=== PATIENT | female | born 1960 | race Caucasian/White ===

== ENCOUNTER 2016-11-19 12:58 | Emergency (ER) | payer BC ==
[2016-11-19 13:28] VITALS: BP 136/75
--- NOTE | 2016-11-19 13:54 | RAD ---
INDICATION: Left wrist pain COMPARISON: None TECHNIQUE: AP, lateral, and oblique views were obtained. FINDINGS: The bony structures, joint spaces, and soft tissues are normal for age. IMPRESSION: NEGATIVE EXAMINATION.
--- NOTE | 2016-11-19 14:30 | UC ---
Upper Extremity HPI - HPI Summary HPI Summary: 56 YEAR OLD FEMALE PRESENTS WITH COMPLAINS OF LEFT WRIST PAIN WITH NO TRAUMA. - History of Current Complaint Chief Complaint: UCUpperExtremity Stated Complaint: WRIST PAIN Time Seen by Provider: 11/19/16 14:28 Hx Obtained From: Patient Hx Last Menstrual Period: 1995 Onset/Duration: Sudden Onset Severity Initially: Moderate Severity Currently: Moderate Pain Scale Used: 0-10 Numeric - 5 - Allergies/Home Medications Allergies/Adverse Reactions: Allergies Allergy/AdvReac Type Severity Reaction Status Date / Time Ampicillin Allergy Severe Anaphylatic Verified 11/19/16 13:28 Shock Penicillins Allergy Severe Anaphylatic Verified 11/19/16 13:28 Shock PMH/Surg Hx/FS Hx/Imm Hx - Surgical History Surgical History: Yes Surgery Procedure, Year, and Place: TOTAL HYSTERECTOMY 2005 [facility] [place];. BREAST BIOPSIES (MULTIPLE);. BREAST RECONSTRUCTIVE SURGERY 1989 [facility] [place];. TONSILLECTOMY 1980;. [facility] 2007;. RIGHT SHOULDER REPAIR - DR. CASTILLO 2013; - Social History Alcohol Use: Rare Substance Use Type: None Smoking Status (MU): Never Smoked Tobacco - Immunization History Most Recent Influenza Vaccination: Fall 2012 Most Recent Tetanus Shot: within last five years Most Recent Pneumonia Vaccination: unsure Review of Systems Constitutional: Negative Skin: Negative Eyes: Negative ENT: Negative Respiratory: Negative Cardiovascular: Negative Gastrointestinal: Negative Genitourinary: Negative Motor: Negative Neurovascular: Negative Musculoskeletal: Other: - LEFT WRIST PAIN/SPRAIN Neurological: Negative Psychological: Negative All Other Systems Reviewed And Are Negative: Yes Physical Exam Triage Information Reviewed: Yes Vital Signs: Initial Vital Signs Temp 37.1 C 11/19/16 13:20 Pulse 95 11/19/16 13:20 Resp 15 11/19/16 13:20 BP 136/75 11/19/16 13:20 Pulse Ox 100 11/19/16 13:20 Vital Signs Reviewed: Yes Eye Exam: Normal ENT Exam: Normal Dental Exam: Normal Neck exam: Normal Neck: Positive: 1 Respiratory Exam: Normal Cardiovascular Exam: Normal Abdominal Exam: Normal Musculoskeletal: Positive: Other: - LEFT WRIST SPRAIN Neurological Exam: Normal Psychological Exam: Normal Skin Exam: Normal Upper Extremity Course/Dx - Differential Dx/Diagnosis Provider Diagnoses: LEFT WRIST SPRAIN Discharge - Discharge Plan Condition: Stable Disposition: HOME Prescriptions: Meloxicam [Mobic] 7.5 mg PO BID #30 tab Patient Education Materials: Hand Sprain (ED) Referrals: Nely Purvis MD [Primary Care Provider] - Raul Noyola MD [Medical Doctor] -
== END 2016-11-19 14:35 | disposition home or self-care (01) ==
LOC: UCEAST 12:58
DX: S63.502A Unspecified sprain of left wrist, initial encounter (principal); X58.XXXA Exposure to other specified factors, initial encounter; Y93.9 Activity, unspecified; Y92.9 Unspecified place or not applicable; Y99.9 Unspecified external cause status; Z88.1 Allergy status to other antibiotic agents; Z88.0 Allergy status to penicillin
CPT/HCPCS: 99213; G0463

== ENCOUNTER 2017-01-22 06:31 | Day surgery (SDC) | payer BC ==
[~2017-01-22 06:31] MED LIST: Buffered Lidocaine 0.9% SYRIN* 5 ML/SYR SYRINGE INTRADERM ONE; Famotidine TAB* 20 MG PO ONE; Naproxen TAB* 250 MG PO ONE; Scopolamine 1.5 mg* PATCH TRANSDERM ONE; Sodium Citrate/Citric Acid* 15 ML UDC PO ONE
[2017-01-22] MEDS ORDERED: Sodium Citrate/Citric Acid* 15 ML UDC ONE (06:42)
[2017-01-22] MEDS ORDERED: Famotidine TAB* 20 MG ONE (06:42)
[2017-01-22] MEDS ORDERED: Scopolamine 1.5 mg* PATCH ONE (06:42)
[2017-01-22] MEDS ORDERED: Clindamycin 900 MG IVPREMIX(* 900 MG/50 ML SDV IV ONE (06:43)
[2017-01-22] MEDS ORDERED: Bupivacaine 0.25% SDV* 30 ML ONE (07:12)
[2017-01-22] MEDS ORDERED: Ibuprofen TAB* 400 MG ONE (07:19)
[2017-01-22] MEDS ORDERED: Insulin LISPRO* 1 UNITS UNIT SUBCUT ONE ×2 (07:21→10:25)
[2017-01-22] MEDS ORDERED: Bupivacaine 0.5% W/EPI SDV* 30 ML VIAL ONE (07:34)
[2017-01-22] MEDS ORDERED: fentaNYL* 50 MCG/ML 2 ML VIAL (100 MCG VIAL) ONE ×2 (07:43→08:42)
[2017-01-22] MEDS ORDERED: Midazolam* 1 MG/ML 2 ML VIAL (2 MG) ONE (07:48)
[2017-01-22] MEDS ORDERED: Propofol* 10 MG/ML 20 ML BTL IV PUSH ONE (08:21)
[2017-01-22] MEDS ORDERED: Propofol* 500 MG/50 ML BTL ONE (08:41)
[2017-01-22] MEDS ORDERED: HYDROmorphone INJ* 1 MG/ML CARPUJECT SYRINGE IV PRN (09:11)
[2017-01-22] MEDS ORDERED: DiMENhydriNATE IV* 50 MG/ML VIAL IV PUSH PRN (09:11)
[2017-01-22] MEDS ORDERED: fentaNYL* 50 MCG/ML 2 ML VIAL (100 MCG VIAL) IV PRN (09:11)
[2017-01-22 11:36] VITALS: BP 125/71
--- NOTE | 2017-01-22 15:08 | OP ---
DATE OF OPERATION: 01/22/17 - [facility] DATE OF : 58 SURGEON: Raul Noyola MD VISUAL DESIGN LEAD: MARLI Olivarez. An administrative personal assistant was needed for the entirety of the procedure to aid in positioning of the arm and retraction, and passing instruments in and out of the joint. ANESTHESIOLOGIST: Dr. Montiel. ANESTHESIA: Axillary block with MAC. PRE-OP DIAGNOSIS: Left ulnar impaction syndrome. POST-OP DIAGNOSIS: Left ulnar impaction syndrome. OPERATIVE PROCEDURE: 1. Left wrist arthroscopy with TFCC debridement and partial synovectomy. 2. Left ulnar shortening osteotomy. INDICATIONS: Keily is 56. She has had ulnar-sided wrist pain that has been progressive for quite some time. She has MRI findings consistent with ulnar impaction syndrome. I talked to her about risks and benefits, she wanted to proceed. ESTIMATED BLOOD LOSS: 5 mL. COMPLICATIONS: None. FINDINGS: As expected. DESCRIPTION OF PROCEDURE: Keily was seen in the preoperative holding area. The correct side, site, and procedure were identified. We came back to the operating room and the arm was prepped and draped in the usual fashion. A time- out was performed. I began by placing the arm in the Acumed traction tower and appropriate traction was applied. Using finger traps, the arm was then exsanguinated with the Esmarch and the tourniquet inflated to 250 mmHg. I began by developing a 3/ 4 portal with the 11 blade followed by the mosquito and a blunt trocar. A camera was introduced into the portal. There was abundant synovitis and fraying inside the joint. I developed a 4/5 portal. A shaver was introduced there. I went ahead and debrided out the dorsal synovitis and there were some frayed edges to the cartilage on the ulnar side of the lunate. I then developed a 6R portal and the shaver was introduced there. Additional debridement was performed of the central TFCC perforation. At that point, I withdrew the arthroscopic equipment. Everything was trimmed back to nice smooth edges. I then went ahead and irrigated out and closed the portal sites with 3-0 Monocryl suture. I then passed off all the arthroscopic equipment. The hand was taken out of the traction tower. The elbow was flexed past 90 degrees. I went ahead and made a longitudinal incision over the distal aspect of the subcutaneous margin of the ulna. Dissection was carried down. The periosteum was released between the ECU and the FCU tendons. Subperiosteal dissection exposed the dorsal side of the ulna. Plate was positioned. At the site of the anticipated osteotomy, I circumferentially released the soft tissue about the ulna. The plate was clamped into place and the dorsal guide for the lag screw was pinned into place. I then went ahead and placed the cutting guide for my osteotomy. I selected a 4-mm cutting guide based off my preoperative planning. The initial osteotomy was made. The second cutting guide was brought in and the second osteotomy was made. I then applied the compression clamp and this was pinned into place and the osteotomy was compressed. Prior to making the cuts, I had placed one screw in the proximal aspect of the oblong hole and the three distal screws. Once the osteotomy was compressed, the lag screw was drilled and placed. I loosened the oblong screw and tightened the lag screw to get maximum compression across the osteotomy. The lag screw was then tightened again. The two more proximal holes were drilled and filled with appropriate length screws. Again, this was all the [employer] ulnar shortening osteotomy system. Once the osteotomy was completed, I checked fluoroscopy. There was excellent compression across the osteotomy site. The screw lengths were all appropriate. I did have to switch out the distal most screw from a 14 to 12 mm. Once I had everything looking good, we irrigated out the wound copiously. The fascia and periosteum was closed with 3-0 Vicryl suture. The subcutaneous tissue was reapproximated with 3-0 Vicryl suture. Skin was closed with 3-0 Monocryl running subcuticular suture and Steri-Strips. All the operative areas were infiltrated with 0.5% Marcaine. She had an axillary block performed prior to beginning the procedure. The wounds were dressed with 4x4, sterile Webril, and then a sugar tong splint was applied with the elbow in 80 degrees of flexion. Tourniquet was deflated. The hand pinked up immediately. She was woken up and taken to the recovery room in stable condition. [id number]/[facility] #: [id number] MTDD
[2017-01-25] MEDS ORDERED: Scopolamine PATCH Remove* 1 NOTE MISC PATCH OFF ONE (06:00)
--- NOTE | 2017-01-27 15:09 | RAD ---
INDICATION: Left wrist pain COMPARISONS: November 19, 2016 TECHNIQUE: Fluoroscopy was provided for a surgical procedure. Total fluoroscopy time is: 29 seconds FINDINGS: Spot images demonstrate internal fixation of the ulnar diaphysis IMPRESSION: FLUOROSCOPY WAS PROVIDED FOR A SURGICAL PROCEDURE CPT II Codes: 6045F
== END 2017-01-22 11:52 | disposition home or self-care (01) ==
LOC: OREAST 06:31
PROVIDERS: ATTEND Orthopaedic Surgery Hand Surgery
DX: M25.832 Other specified joint disorders, left wrist (principal); M65.832 Other synovitis and tenosynovitis, left forearm; M24.132 Other articular cartilage disorders, left wrist; I10 Essential (primary) hypertension; J45.909 Unspecified asthma, uncomplicated; E11.9 Type 2 diabetes mellitus without complications; F41.9 Anxiety disorder, unspecified; Z79.84 Long term (current) use of oral hypoglycemic drugs; Z88.0 Allergy status to penicillin; Z88.1 Allergy status to other antibiotic agents; M24.832 Other specific joint derangements of left wrist, not elsewhere classified
CPT/HCPCS: 76000; 88304; 88311; A9270-GY; C1713; C1776; J2250; J2704; J3010

== ENCOUNTER 2019-02-07 13:12 | Emergency (ER) | payer BC ==
--- OUTSIDE RECORDS SUMMARY | 2019-02-07 13:44 | XMS REPORT | Continuity of Care Document ---
:1960 External Reference #:[id number] Author Name Marysol Yap MD (transmitted by agent of provider Amanda Giang) Address [address] [place] [address] Care Team Providers Name Role Phone Nely Purvis MD - Care Team Information Chief Data Officer Family Medicine Problems Active Problems Provider Date Disorder of shoulder Marysol Yap MD Onset: 10/11/2015 Unspecified injury of left quadriceps muscle, Suzan Avila M.D. Onset: 07/11 fascia and tendon, subsequent encounter Other specific joint derangements of left wrist, Raul Noyola MD Onset: not elsewhere classified Sprain of wrist and/or hand Raul Noyola MD Onset: 02/23/2018 Iliotibial band friction syndrome Suzan Avila M.D. Onset: 04/16/2018 Localized, secondary osteoarthritis of the Marysol Yap MD Onset: 11/11/2018 shoulder region Incomplete rotator cuff tear or rupture of right Marysol Yap MD Onset: 06/2018 shoulder, not specified as traumatic Social History Type Date Description Comments Sex Unknown ETOH Use Rarely consumes alcohol Tobacco Use Start: Unknown Patient has never smoked Smoking Status Reviewed: 12/21/18 Patient has never smoked Exercise Type/Frequency Exercises sporadically Allergies, Adverse Reactions, Alerts Active Allergies Reaction Severity Comments Date Penicillin 02/15/2014 Ampicillin 11/25/2016 Medications Active Medications SIG Qnty Indications Ordering Provider Date Metformin HCL as directed Unknown 1000mg Tablets Crestor as directed Unknown 10mg Tablets Diovan HCT as directed Unknown Citalopram 1 by mouth every Unknown Hydrobromide day 20mg Tablets Trulicity inject 0.75mg once Unknown 0.75mg/0.5ML a week Solution Pen-Inject Medications Administered in Office Medication SIG Qnty Indications Ordering Provider Date Triamcinolone (Kenalog) Marysol Yap MD 11/02/2018 Injection Celestone 3 mg and 3mg Raul Noyola MD 12/15/2017 Injection Celestone 3 mg and 3mg Raul Noyola MD 12/19/2016 Injection Triamcinolone (Kenalog) Marysol Yap MD 10/11/2015 Injection Depomedrol 40MG Jonny Rose M.D. 04/03/2014 Injection Depomedrol 80MG Jonny Rose M.D. 02/15/2014 Injection Immunizations Description No Information Available Vital Signs Date Vital Result Comment 12/21/2018 3:28pm Height 61 inches 5'1" Weight 170.00 lb Heart Rate 88 /min BP Systolic 116 mmHg BP Diastolic 70 mmHg Body Temperature 99.3 F Pain Level 7 BMI (Body Mass Index) 32.1 kg/m2 11/11/2018 9:06am Height 61 inches 5'1" Weight 170.00 lb BP Systolic 128 mmHg BP Diastolic 88 mmHg Respiratory Rate 14 /min Body Temperature 98.0 F Pain Level 2 BMI (Body Mass Index) 32.1 kg/m2 Results Description No Information Available Procedures Date Code Description Status 11/02/2018 61526 Inject/Drain Joint/Bursa Major W/O US Completed Medical Devices Description No Information Available Encounters Type Date Location Provider Dx Diagnosis Office Visit 11/11/2018 [place] Alexy Yap MD M75.41 Impingement 9:00a at [place] syndrome of right shoulder 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, right shoulder M75.111 Incomplete rotatr-cuff tear/ruptr of r shoulder, not trauma Office Visit 11/02/2018 1:30p [facility] Y[facility] M25.511 Pain in right at [place] shoulder M75.41 Impingement syndrome of right shoulder M19.011 Primary osteoarthritis, right shoulder M75.51 Bursitis of right shoulder Assessments Date Code Description Provider 12/21/2018 M75.111 Incomplete rotator cuff tear or rupture of right Marysol Yap MD shoulder, not specified as traumatic 12/21/2018 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, right shoulder Marysol Yap MD 11/11/2018 M75.41 Impingement syndrome of right shoulder Marysol Yap MD 11/11/2018 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, right shoulder Marysol Yap MD 11/11/2018 M75.111 Incomplete rotator cuff tear or rupture of right Marysol Yap MD shoulder, not specified as traumatic 11/02/2018 M25.511 Pain in right shoulder Marysol Yap MD 11/02/2018 M75.41 Impingement syndrome of right shoulder Marysol Yap MD 11/02/2018 M19.011 Primary osteoarthritis, right shoulder Marysol Yap MD 11/02/2018 M75.51 Bursitis of right shoulder Marysol Yap MD Plan of Treatment 12/21/2018 - Marysol Yap MDM75.111 Incomplete rotator cuff tear or rupture of right shoulder, not specified as traumaticFollow up:Follow up: for rodríguez nd p or 10-14 days post op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, right shoulder Functional Status Description No Information Available Mental Status Description No Information Available Referrals Description No Information Available
--- OUTSIDE RECORDS SUMMARY | 2019-02-07 13:44 | XMS REPORT | Summary of Care ---
:1960 Author Organization [facility] Address [address] [place] [address] Care Team Providers Name Role Phone Nely Purvis MD Primary Care Provider Reason for Visit Reason Comments URI Pt presents today with a chest cold x 1 wk/10 days, Pt has taken Mucinex, and cough syrup w/ no relief. Counghing keeps the pt awake at night. Pt has had vomiting, diahrea for 2 days last week. Diabetes A1C 8.0 12/13/2018 Encounter Details Date Type Department Care Team Description 01/31/2019 Office Visit [place] [facility] Victor Hugo De La Rosa, Acute bronchitis , Medicine [place] unspecified organism [address] (Primary Dx) [place] [address] [place] [address] [phone] Allergies Active Allergy Reactions Severity Noted Date Comments Penicillin G Potassium Hives 04/26/2007 documented as of this encounter (statuses as of 01/31/2019) Medications Medication Sig Dispensed Refills Start Date End Date Status albuterol HFA Take 2 Puffs by 2 Inhaler 1 10/06/2014 Active (VENTOLIN) 108 (90 inhalation EVERY BASE) MCG/ACT SIX HOURS Inhalation Aero NEEDED (wheezing). SolnIndications: Asthma, mild persistent, uncomplicated metFORMIN HCL 1000 MG take 1 tablet by 60 Tab 11 02/17/2018 Active Oral TabIndications: mouth twice a day Type 2 diabetes for DIABETES mellitus without complication, without long-term current use of insulin ([facility]) Blood Glucose use as directed 1 Each 0 02/23/2018 Active Monitoring Suppl (FREESTYLE LITE) Does not apply Device Dulaglutide Inject 1.5 mg 2.24 mL 11 09/14/2018 Active (TRULICITY) 1.5 beneath the skin MG/0.5ML Subcutaneous EVERY 7 DAYS. Solution Pen-injectorIndication s: Type 2 diabetes mellitus without complication, without long-term current use of insulin ([facility]) citalopram (CELEXA) 20 take 1 tablet by 90 Tab 3 10/11/2018 Active MG Oral Tab mouth once daily FARXIGA 10 MG Oral take 1 tablet by 90 Tab 1 11/09/2018 Active TabIndications: Type 2 mouth once daily diabetes mellitus without complication, without long-term current use of insulin ([facility]) Valsartan-hydroCHLOROt Take 1 Tab by 90 Tab 3 12/17/2018 Active hiazide 80-12.5 MG mouth DAILY. Oral Tab Glucose Blood In Vitro 1 Strip by In 100 Strip 3 12/22/2018 Active StripIndications: Type Vitro route DAILY. 2 diabetes mellitus without complication, without long-term current use of insulin ([facility]) Rosuvastatin Calcium TAKE 1 TABLET BY 90 Tab 1 01/06/2019 Active (CRESTOR) 10 MG Oral MOUTH ONCE DAILY TabIndications: Hyperlipidemia, unspecified hyperlipidemia type guaiFENesin-codeine Take 10 mL by 118 mL 0 01/31/2019 Active (ROBITUSSIN AC) 100-10 mouth EVERY FOUR MG/5ML Oral Solution HOURS NEEDED (As needed for cough.). Max Daily Amount: 60 mL. documented as of this encounter (statuses as of 01/31/2019) Active Problems Problem Noted Date Asthma 10/06/2014 Essential hypertension, benign 05/26/2014 Type 2 diabetes mellitus without complication, without long-term current 08/12 use of insulin Overview: A1C 6.7% 12/24. documented as of this encounter (statuses as of 01/31/2019) Resolved Problems Problem Noted Date Resolved Date Persistent asthma 10/11/2013 10/06/2014 BMI 32.0-32.9,adult 09/01/2011 05/26/2014 Overview: sustained wt reduction with portion control and sustained routine exercise. Set realistic goal of 1# wt reduction /week set 10 week goals. BMI 34.0-34.9,adult 08/12/2010 09/01/2011 Overview: Is working on sustained wt reduction with diet/exercise (gym)--aiming for 1# wt loss/week. Mild intermittent asthma 02/29/2008 10/11/2013 Overview: Cold induced. Endometriosis 02/29/2008 05/26/2014 Overview: S/p ABDULLAHI and BSO Dr Og 02/22. Family history of breast cancer 02/29/2008 05/30/2011 Overview: Sister age 35 yrs S/P excision of fibroadenoma of breast 02/29/2008 05/30/2011 Overview: Bilateral. 1980, S/P reduction mammoplasty 02/29/2008 05/26/2014 Overview: Dr Varela . Asthma 01/20/2014 documented as of this encounter (statuses as of 01/31/2019) Immunizations Name Administration Dates Next Due Adacel TdaP 01/07/2006 Hepatitis B Vaccine Adult 02/17/1993 Influenza (IM) Preservative Free 12/17/2017 Influenza Vaccine Whole 11/12/1992, 11/18/1991, 12/27/1990 PNEUMOCOCCAL POLYSACCHARIDE VACCINE 01/01/1996 TDAP Vaccine 04/10/2017 TETANUS & DIPHTHERIA TOXOID (OVER 7 YRS) 12/17/2015 dT Vaccine 10/09/1995 documented as of this encounter Social History Tobacco Use Types Packs/Day Years Used Date Never Smoker Smokeless Tobacco: Never Used Alcohol Use Drinks/Week oz/Week Comments Yes 0 Standard drinks or equivalent 0.0 rare Sex Assigned at Date Recorded Not on file Job Start Date Occupation Industry Not on file Not on file Not on file Travel History Travel Start Travel End No recent travel history available. documented as of this encounter Last Filed Vital Signs Vital Sign Reading Time Taken Comments Blood Pressure 134/86 01/31/2019 3:23 PM EST Pulse 100 01/31/2019 3:23 PM EST Temperature 36.8 01/31/2019 3:23 PM EST C (98.2 F) Respiratory Rate - - Oxygen Saturation 96% 01/31/2019 3:23 PM EST Inhaled Oxygen Concentration - - Weight 77.1 kg (170 lb) 01/31/2019 3:23 PM EST Height 154.9 cm (5' 1") 01/31/2019 3:23 PM EST Body Mass Index 32.12 01/31/2019 3:23 PM EST documented in this encounter Patient Instructions Patient InstructionsVictor Hugo De La Rosa PA - 01/31/2019 3:20 PM ESTPatient Education Acute Bronchitis Discharge Instructions, Adult About this topic Acute bronchitis is a problem with your lungs. It can last for a short time or for a longer time. The lining of the airways to the lungs are irritated and swollen. It is a mild health problem that mostoften goes away on its own. What care is needed at home? Ask your doctor what you need to do when you go home. Make sure you ask questions if you do notunderstand what the doctor says. This way you will know what you need to do. Prop your head and shoulders on pillows when you lie down. This may make it easier to breathe. Use a cool mist humidifier to help with breathing. Be sure to clean it thoroughly with a mild bleach solution weekly. This will help prevent germs from growing in the water chamber. Drink 8 to 10 glasses of water each day. This will help keep the mucus thin. It will also help prevent fluid loss. Your doctor may teach you some breathing exercises. What follow-up care is needed? Your doctor may ask you to make visits to the office to check on your progress. Be sure to keepthese visits. It may take 1 to 2 weeks to feel better. Ask your doctor if you need a vaccine to prevent problems from bronchitis. What drugs may be needed? Take your drugs as ordered by your doctor. The doctor may order drugs to: Make breathing easier Control coughing Lower swelling in your airways Prevent infection Control extra mucus Will physical activity be limited? Your physical activities may be limited as long as you have the signs of this health problem. Avoid heavy and tiring activities. Talk to your doctor about the right amount of activity for you. What problems could happen? Long-term swelling of the lungs. This is chronic bronchitis. Asthma Lung infection Cough continues even after you feel better What can be done to prevent this health problem? Wash your hands often with soap and water for at least 20 seconds, especially after coughing orsneezing. Alcohol-based hand sanitizers also work to kill the virus. If you are sick, cover your mouth and nose with tissue when you cough or sneeze. You can also cough into your elbow. Throw away tissues in the trash and wash your hands after touching used tissues. Do not get too close (kissing, hugging) to people who are sick. Do not share towels or hankies with anyone who is sick. Clean commonly handled things like door handles, remotes, toys, and phones. Wipe them with a disinfectant. Stay away from crowded places. Stop smoking. Stay away from dust and fumes. Get a flu shot each year. When do I need to call the doctor? Signs of infection. These include a fever of 100.4F (38C) or higher , chills, cough, more sputum or change in color of sputum. Breathing is getting worse: harder or faster than before or you feel like you are getting less air You need to lean forward to help you breathe when sitting You are using your rib muscles to help you breathe. You see the skin between your ribs going inas you breathe. Trouble breathing when lying down flat on your back Feeling extra sleepy or confused Fingertips, fingernails, skin, or lips are blue You are not feeling better in 2 to 3 days or you are feeling worse Teach Back: Helping You Understand The Teach Back Method helps you understand the information we are giving you. The idea is simple. After talking with the staff, tell them in your own words what you were just told. This helps to make sure the staff has covered each thing clearly. It also helps to explain things that may have been a bit confusing. Before going home, make sure you are able to do these: I can tell you about my condition. I can tell you what may help ease my breathing. I can tell you what I will do if I have more trouble breathing, it is harder to breathe, or I feel like I am getting less air. Where can I learn more? [employer] https://familydoctor.org/condition/acute-bronchitis/ NHS Choices https://www.nhs.uk/conditions/bronchitis/ Last Reviewed Date 2017-04-03 Consumer Information Use and Disclaimer This information is not specific medical advice and does not replace information you receive from your health care provider. This is only a brief summary of general information. It does NOT include allinformation about conditions, illnesses, injuries, tests, procedures, treatments, therapies, discharge instructions or life-style choices that may apply to you. You must talk with your health care provider for complete information about your health and treatment options. This information should not beused to decide whether or not to accept your health care providers advice, instructions or recommendations. Only your health care provider has the knowledge and training to provide advice that isright for you. Copyright Copyright 2019 [employer] and its affiliates and/or licensors. All rights reserved. documented in this encounter Progress Notes Victor Hugo De La Rosa PA - 01/31/2019 3:20 PM EST PATIENT: Keily Maldonado : 1960 DATE OF SERVICE: 01/31/2019 Subjective SUBJECTIVE: Keily Maldonado is a 58-y.o. female who presents for evaluation of nonproductive cough. Symptoms began 2 weeks ago and are gradually improving since that time. Past history is significant for pneumonia and occasional episodes of bronchitis. 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 She has a history of pneumonia, and gets bronchitis annually that generally does not respond well to over the counter medications such as dextromethorphan and guaifenesin. She has been using these medications this week without any palliation. She also has associated sinus pain and pressure with post nasal drip, fever, nausea, vomiting, and diarrhea last week. Today she denies nausea, vomiting and diarrhea, but still complaints of facial tenderness and congestion, cough, and occasional wheezing. Past Medical History: Diagnosis Date Ovarian Cyst 04/28/2006 Arthritis chronic fatigue 1990, in remission Asthma hospitalized 2013 x 4 days DIABETES 08/12/2004 dx age 29 Essential hypertension, benign 05/26/2014 History of breast surgery 1989 reduction Hypertension 08/20/2004 Meningitis viral 11/1989 Pneumonia 02/1990 hospitalized for one week Family History Problem Relation Age of Onset Cancer Sister 41 BREAST Allergic Rhinitis Sister Breast Cancer Sister Hypertension Brother Cancer Mother LUNG Alcohol/Drug Mother Cancer Father STOMACHE No Known Problems Brother Cancer Paternal Grandmother breast cancer Breast Cancer Paternal Grandmother Cancer Maternal Grandmother brain cancer No Known Problems Brother No Known Problems Brother Diabetes Sister Asthma Sister Current Outpatient Medications Medication Sig albuterol HFA (VENTOLIN) 108 (90 BASE) MCG/ACT Inhalation Aero Soln Take 2 Puffs by inhalation EVERY SIX HOURS NEEDED (wheezing). Blood Glucose Monitoring Suppl (FREESTYLE LITE) Does not apply Device use as directed citalopram (CELEXA) 20 MG Oral Tab take 1 tablet by mouth once daily Dulaglutide (TRULICITY) 1.5 MG/0.5ML Subcutaneous Solution Pen-injector Inject 1.5 mg beneaththe skin EVERY 7 DAYS. FARXIGA 10 MG Oral Tab take 1 tablet by mouth once daily Glucose Blood In Vitro Strip 1 Strip by In Vitro route DAILY. guaiFENesin-codeine (ROBITUSSIN AC) 100-10 MG/5ML Oral Solution Take 10 mL by mouth EVERY FOUR HOURS NEEDED (As needed for cough.). Max Daily Amount : 60 mL. metFORMIN HCL 1000 MG Oral Tab take 1 tablet by mouth twice a day for DIABETES Rosuvastatin Calcium (CRESTOR) 10 MG Oral Tab TAKE 1 TABLET BY MOUTH ONCE DAILY Valsartan-hydroCHLOROthiazide 80-12.5 MG Oral Tab Take 1 Tab by mouth DAILY. No current facility-administered medications for this visit. Allergies Allergen Reactions Penicillin [Penicillin G Potassium] Hives Social History Socioeconomic History Marital status: Single Spouse name: Not on file Number of children: Not on file Years of education: Not on file Highest education level: Not on file Occupational History Not on file Social Needs Financial resource strain: Not on file Food insecurity Worry: Not on file Inability: Not on file Transportation needs Medical: Not on file Non-medical: Not on file Tobacco Use Smoking status: Never Smoker Smokeless tobacco: Never Used Substance and Sexual Activity Alcohol use: Yes Alcohol/week: 0.0 standard drinks Comment: rare Drug use: No Sexual activity: Never Lifestyle Physical activity Days per week: Not on file Minutes per session: Not on file Stress: Not on file Relationships Social connections Talks on phone: Not on file Gets together: Not on file Attends restorationist service: Not on file Active member of club or organization: Not on file Attends meetings of clubs or organizations: Not on file Relationship status: Not on file Intimate partner violence Fear of current or ex partner: Not on file Emotionally abused: Not on file Physically abused: Not on file Forced sexual activity: Not on file Other Topics Concern Back Care Not Asked Bike Helmet Not Asked Blood Transfusions Not Asked Caffeine Concern Not Asked Exercise Yes Comment: 1 hr three times a week Hobby Hazards Not Asked International Travel Not Asked Service Not Asked Occupational Exposure Not Asked Seat Belt Not Asked Self-Exams Not Asked Sleep Concern Not Asked Special Diet Yes Comment: low carbo and low salt diet. Stress Concern No Weight Concern Yes Comment: goal weight is 155 lbs. Social History Narrative Lives in [place]. 2 cats @ home. 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 Plans to retire REVIEW OF SYSTEMS: Review of Systems Constitutional: Positive for diaphoresis, fever and malaise/fatigue. HENT: Positive for congestion, ear pain and sinus pain. Negative for ear discharge. Eyes: Negative for pain and discharge. Respiratory: Positive for cough and wheezing. Negative for hemoptysis and sputum production. Complains of pleuritic chest pain. Cardiovascular: Negative for chest pain, palpitations and leg swelling. Gastrointestinal: Had nausea, vomiting, and diarrhea last week but has since resolved. Musculoskeletal: Negative for joint pain and myalgias. Experienced myalgias last week. Neurological: Negative for dizziness, loss of consciousness and headaches. Objective OBJECTIVE: BP 134/86 (BP Location: Right arm, Patient Position: Sitting) | Pulse 100 | Temp 98.2 F (36.8 C) (Tympanic) | Ht 5' 1" (1.549 m) | Wt 170 lb ( 77.1 kg) | SpO2 96% | BMI 32.12 kg/m GENERAL: alert, fatigued, mild distress. CYANOSIS: absent. HEENT: throat normal without erythema or exudate and maxillary sinus tender. Mild anterior cervicaladenopathy noted. LUNGS: clear to auscultation bilaterally. HEART: regular rate and rhythm, S1, S2 normal, no murmur, click, rub or gallop. ABDOMEN: soft, non-tender. Bowel sounds normal. No masses, no organomegaly. EXTREMITIES: extremities normal, atraumatic, no cyanosis or edema. NEUROLOGICAL: alert, oriented times three, no defects noted in general exam. ASSESSMENT: Acute bronchitis ICD-9-CM ICD-10-CM 1. Acute bronchitis, unspecified organism 466.0 J20.9 Plan PLAN: 1. Codeine with guaifenesin has been administered. I decided to do this medication based on her recurrent history of cough and bronchitis spells that do not respond well to Mucinex. She denies a history opioid dependence, and I also reviewed I-Stop and did not see any recent prescription for opiate. She has been advised of the risk of dependence with opiates, in which she expressed understanding to. This report was requested by: Victor Hugo De La Rosa | Reference #: [id number] 2. Recheck as needed for persistence, worsening, appearance of new symptoms. 3. Patient reassured that most of acute bronchitis is viral in nature and does not require antibiotics. Author: MARLI Brush 01/31/2019 15:55 documented in this encounter Plan of Treatment Date Type Specialty Care Team Description 02/21/2019 Office Visit Family Practice Nely Purvis MD [address] [place] [address] [phone] Health Maintenance Due Date Last Done Comments ZOSTER IMMUNIZATION SERIES 07/31/2009 (1 of 2) HEMOGLOBIN A1C 03/15/2019 12/13/2018, 08/04/2018, 05/05/2018, Additional history exists DEPRESSION SCREENING 05/14/2019 05/13/2018 FOOT EXAM 09/15/2019 09/14/2018, 09/14/2018, 09/14/2018, Additional history exists LIPID DISORDER SCREENING 01/07/2020 01/06/2019, 12/13/2018, 05/05/2018, Additional history exists Diabetic Eye Exam 04/05/2020 04/05/2018, 04/05/2018, 04/05/2018, Additional history exists Colonoscopy 05/28/2021 05/29/2011, 05/29/2011 (Previously completed) DTaP/Tdap/Td Vaccines (4 - 04/10/2027 04/10/2017, 12/17/2015, Tdap) 10/09/1995 PNEUMOCOCCAL 0-64 YRS Completed 01/01/1996 HEPATITIS A IMMUNIZATION Aged Out No longer eligible SERIES based on patient's age to complete this topic HPV IMMUNIZATION SERIES Aged Out No longer eligible based on patient's age to complete this topic MENINGOCOCCAL VACCINE IMM Aged Out No longer eligible based on patient's age to complete this topic documented as of this encounter Goals Goal Patient Goal Associated Recent Patient-Stated? Author Type Problems Progress Blood Pressure Blood Pressure Essential 134/86 No Cornelia, < 140/90 hypertension, (01/31/2019 Yovanny, colton 3:23 PM EST) Note: Hypertension Care Plan Based on the patient's clinical history and according to JNC 8 guidelines target blood pressure goal is less than 140/90. Based on the patient's last blood pressure of BP: 122/80 mmHg the patient is at at goal. As your provider, it is important that I advise you regarding: your current medications and help you with any challenges you may face taking your medications as directed (ex. instructions, cost, side effects, and interactions). Important lifestyle changes: exercise, weight reduction and diet your clinical goals and how you can achieve success: weight reduction, exercise plan and diet improvements medication management: adjusted medications as appropriate patient education/self-management tools provided: Current self-management tools adequate To successfully manage my Hypertension I will: monitor my blood pressure daily, understanding that my goal is less than 140/ 90 per my healthcare provider's recommendation. I will schedule an appointment with my provider if consistent abnormal readings greater than 160/100. take medications every day as prescribed by my healthcare provider and if unable to take them I will discuss with my provider. monitor for symptoms of chest pain, chest tightness/pressure, irregular heartbeat, persistent dizziness, radiating arm pain, and neck or jaw pain. If any of these symptoms are noticed I will seek medical attention immediately by calling 911 exercise/walk 15 minutes 3 day(s) per week. If I experience chest pain, chest tightness, or shortness of breath, I will seek medical attention immediately. follow a diet rich in fruits, vegetables, and low-fat dairy products with reduced content of saturated & total fat. I will reduce my sodium intake daily. An example is the DASH diet. To obtain more information please refer to the DASH Eating Plan listed in Educational Resources. record my blood pressure results. Margie is safe and secure way for you to do this in your medical record online. try to obtain an ideal body weight. My recent weight was Weight: 182 lb ( 82.555 kg). My weight loss goal for my next office visit is 175#. limit alcohol consumption. For men two drinks per day and women one drink per day. if currently smoking, will discuss how to quit smoking with my healthcare provider and work towards quitting. Educational Resources: National Heart, Lung, & Blood [place] http://nhlbi.nih.gov/hbp/index.html The DASH Diet Eating Plan http://www.nhlbi.nih.gov/health/health-topics/ topics/dash/ Academy of Nutrition & DIetetics http://eatright.org National Smoking Cessation Site http://smokefree.gov Blood Pressure < Blood Pressure 134/86 (01/31/2019 No Nely Purvis 140/90 3:23 PM ESTSonido Baker MD Note: This is an individualized treatment (blood pressure) goal for Keily Maldonado: Displayed above (on the left) is your goal for blood pressure control. Your most recent blood pressure is also shown above, on the right. You should try to achieve blood pressures that are lower than your goal listed above (on the left). Diabetes < 7.0 Diabetes Type 2 diabetes 8.0 (12/13/2018 No Cornelia mellitus without 9:13 AM EDT) MD Yovanny complication, without long-term current use of insulin Note: Diabetes Care Plan According to current 2014 ADA guidelines the patient A1C goal is less than 7. The patient's last A1C was Lab Results Lab Results Value Date/Time GLYCO 7.6 12/02/2013 0827 GLYCO 7.5 11/30/2012 1155 The patient is:above goal . As your provider, it is important that I advise you regarding: your current medications and help you with any challenges you may face taking your medications as directed (ex. instructions, cost, side effects, and interactions). lifestyle changes:exercise, diet and glucose monitoring your clinical goals and how you can achieve success:weight reduction, exercise plan and diet management medication management: adjusted medications as appropriate patient education/self-management tools provided: To successfully manage my Diabetes I will: have lab work every six months if my previous A1c was 7 or less. If my results were greater than 7, I will have lab work every three months. My goal is to control my diabetes by keeping A1c below 7.0 take medications every day as prescribed by my healthcare provider and if unable to take them I will discuss with my provider. exercise/walk 30 minutes 3 day(s) per week. If I experience chest pain, chest tightness, or shortness of breath, I will seek medical attention immediately. check feet daily. If sores or irritation are noticed, will seek medical attention. follow a low carbohydrate and low fat diet. My goal is an LDL (bad cholesterol) number less than 100 when I have my routine lab work. check blood sugar as instructed and will call my healthcare provider if the results are consistently below 70 or above 300. I will monitor for symptoms of low blood sugar (feeling faint, dizzy, lig htheaded, jittery, sweaty, or hungry), if symptoms are noticed, I will eat or drink something (glucose tabs, orange juice, candy) to help raise sugar. record my blood sugar results (including dextrose sticks). [employer] is safe and secure way for you to do this in your medical record online. try to obtain an ideal body weight. My recent weight was . My weight loss goal for my next office visit is 5# less. to prevent kidney problems common to people with diabetes I will complete a yearly Microalbumin to check for protein in urine. I will talk with my healthcare provider about medications to prevent diabetic renal disease. to prevent diabetic retinopathy I will see an eye doctor yearly. A yearly dilated eye exam helps prevent blindness. if currently smoking, will discuss how to quit smoking with my healthcare provider and work towards quitting. Glycohemoglobin A1c < 7.0 Diabetes 8.0 (12/13/2018 9:13 No Nely Purvis AM, MD Note: This is an individualized treatment (diabetes control, HgbA1C) goal for Keily Maldonado: Displayed above is your progress towards your HgbA1C goal. Your goal is shown above (on the left); your most recent HgbA1C is shown on the right. Note that lower numbers are better. Weight loss vs. 18 Lifestyle 14 (01/31/2019 3:23 PM No Nely Purvis mo max (lbs) >= 10 EST) Note: This is an individualized lifestyle goal for Keily Maldonado: Your body mass index (BMI) is more than 30. You should lose weight. A reasonable starting goal is to lose 10 pounds. Displayed above is how many pounds you have lost thus far towards your 10 pound weight loss goal. Keep immunizations current Lifestyle No Nely Purvis MD Note: This is an individualized lifestyle goal for Keily Maldonado: Please be sure to keep up-to-date on recommended immunizations. For example, this would include a yearly influenza vaccine. Immunization status can be seen by looking at the Health Maintenance sections of your [facility], Plan of Care, and any After Visit Summaries. Take all prescribed medications as Self-management No Nely Purvis MD directed Note: This is an individualized self-management goal for Keily Maldonado: Please take all prescribed medications as directed. 1. Do not skip doses. If you cannot afford your medications, talk with your doctor. 2. Use a pill reminder system such as a pill box if needed. Your pharmacist can help you with this. 3. Contact your Pharmacy 5 days before your medication runs out. If you cannot take your medications for any reasons, talk with your doctor. 4. Please bring all of your medication bottles and inhalers (or a list of all your medications/inhalers) with you to every visit. Potential barriers to meeting all of your care plan goals will continue to be addressed on an ongoing basis. documented as of this encounter Results Not on filedocumented in this encounter Visit Diagnoses Diagnosis Acute bronchitis, unspecified organism documented in this encounter Insurance Payer Benefit Plan / Subscriber ID Effective Dates Phone Address Type Group [employer] xxxxxxxxxxxx 2016-Present [employer] (Home) [place], [place] [phone] (Work) documented as of this encounter
--- OUTSIDE RECORDS SUMMARY | 2019-02-07 13:44 | XMS REPORT | Summary of Care ---
:1960 Author Organization [facility] Address [address] [place] [address] Care Team Providers Name Role Phone Nely Purvis MD Primary Care Provider Reason for Visit Reason Comments Follow Up labs Diabetes Encounter Details Date Type Department Care Team Description 12/22/2018 Office Visit Earnest Purvis, Type 2 diabetes mellitus without complication, without long-term current use of insulin (HCC) (Primary Dx ); Practice Nely Baker MD Essential hypertension, benign; [address] Mild intermittent [place] [address] [place] [address] [phone] Allergies Active Allergy Reactions Severity Noted Date Comments Penicillin G Potassium Hives 04/26/2007 documented as of this encounter (statuses as of 12/22/2018) Medications Medication Sig Dispensed Refills Start End Date Status Date albuterol HFA Take 2 Puffs by 2 Inhaler 1 Active (VENTOLIN) 108 (90 inhalation 5 BASE) MCG/ACT EVERY SIX HOURS Inhalation Aero NEEDED SolnIndications: (wheezing). Asthma, mild persistent, uncomplicated metFORMIN HCL 1000 take 1 tablet 60 Tab 11 Active MG Oral by mouth twice 9 TabIndications: a day for Type 2 diabetes DIABETES mellitus without complication, without long-term current use of insulin (HCC) Blood Glucose use as directed 1 Each 0 Active Monitoring Suppl 9 (FREESTYLE LITE) Does not apply Device Rosuvastatin take 1 tablet 90 Tab 2 Active Calcium (CRESTOR) by mouth once 9 10 MG Oral daily TabIndications: Hyperlipidemia, unspecified hyperlipidemia type Dulaglutide Inject 1.5 mg 2.24 mL 11 Active (TRULICITY) 1.5 beneath the 9 MG/0.5ML skin EVERY 7 Subcutaneous DAYS. Solution Pen-injectorIndicat ions: Type 2 diabetes mellitus without complication, without long-term current use of insulin (HCC) citalopram (CELEXA) take 1 tablet 90 Tab 3 Active 20 MG Oral Tab by mouth once 9 daily FARXIGA 10 MG Oral take 1 tablet 90 Tab 1 Active TabIndications: by mouth once 9 Type 2 diabetes daily mellitus without complication, without long-term current use of insulin (HCC) Valsartan-hydroCHLO Take 1 Tab by 90 Tab 3 Active ROthiazide 80-12.5 mouth DAILY. 9 MG Oral Tab Glucose Blood In 1 Strip by In 100 Strip 3 Active Vitro Vitro route 9 StripIndications: DAILY. Type 2 diabetes mellitus without complication, without long-term current use of insulin ([facility]) Glucose Blood In 1 Strip by In 100 Strip 3 12/23/19 Discontinued Vitro Vitro route 8 19 (Reorder) StripIndications: DAILY. Type 2 diabetes mellitus without complication, without long-term current use of insulin (HCC) documented as of this encounter (statuses as of 12/22/2018) Active Problems Problem Noted Date Asthma 10/06/2014 Essential hypertension, benign 05/26/2014 Type 2 diabetes mellitus without complication, without long-term current 08/12 use of insulin Overview: A1C 6.7% 12/24. documented as of this encounter (statuses as of 12/22/2018) Resolved Problems Problem Noted Date Resolved Date [...] as of this encounter (statuses as of 12/22/2018) Immunizations Name Administration Dates Next Due Adacel TdaP 01/07/2006 Depo Medrol (40mg) 06/25/2015, 08/10/2013 Hepatitis B Vaccine Adult 02/17/1993 Influenza (IM) [...] Sign Reading Time Taken Comments Blood Pressure 110/76 12/22/2018 10:10 AM EST Pulse 93 12/22/2018 10:10 AM EST Temperature - - Respiratory Rate - - Oxygen Saturation 96% 12/22/2018 10:10 AM EST Inhaled Oxygen Concentration - - Weight 77.5 kg (170 lb 12.8 oz) 12/22/2018 10:10 AM EST Height 154.9 cm (5' 1") 12/22/2018 10:10 AM EST Body Mass Index 32.27 12/22/2018 10:10 AM EST documented in this encounter Patient Instructions Patient InstructionsCannariato, Nely J, MD - 12/22/2018 10:00 AM ESTPlease continue current medications, Work in diet and exercise. Repeat an A1c In 3 months. Our goal is under 7.0 Return in early February for pre-op exam if required by Dr Barragan prior to your shoulder surgery. DIET AND EXERCISE: Exercise is recommended 150 minutes weekly: 30 minutes five days a week of moderate exercise such as walking. In addition is it recommended you have two days weekly of working all your major muscle groups (arms, legs) such as with weight lifting or other exercise. I recommend a well balanced healthy diet, portion control, drink plenty of fluids. The Mediterranean diet is an excellent diet. Be sure to get adequate sleep at night, 8 hours. documented in this encounter Progress Notes Nely Purvis MD - 12/22/2018 10:00 AM EST Nursing Notes: Evon Young LPN 12/22/2018 10:27 AM Signed Chief Complaint Patient presents with Follow Up labs Diabetes SUBJECTIVE: Keily Maldonado is an 58-y.o. female who presents for evaluation and treatment of Type 2 diabetes mellitus. Family history: positive for diabetes in the patients Sister(s). Previous treatment modalities employed include diet and oral agents. Current treatment includes diet and oral agents and Trulicity. I increased her dose last visit Since late Mar she stopped all sweets. She stopped glimepiride and started Farxiga. 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 Planning right rotator cuff surgery in February, Dr Barragan Acute concerns: none Colonoscopy: she is holding off Current monitoring regimen: home blood tests - once daily Home blood sugar records: Low 100's Last HgbA1c: Lab Results Component Value Date GLYCO 8.0 (H) 12/13/2018 GLYCO 7.8 (H) 08/04/2018 GLYCO 8.7 (H) 05/05/2018 Last eye exam: 03/2018 Last microalbumin: 04/2018 Last microfilament foot exam: 08/2018 LDL: Lab Results Component Value Date CHOL 156 05/05/2018 TRIG 154 (H) 05/05/2018 HDL 40 (L) 05/05/2018 LDL 85 05/05/2018 LDLHDLRATIO 2.1 05/05/2018 CHOLHDLRATIO 3.9 05/05/2018 Lab on 12/13/2018 Component Date Value Ref Range Status Sodium 12/13/2018 138 134 - 145 mmol/L Final Potassium 12/13/2018 4.4 3.5 - 5.1 mmol/L Final Chloride 12/13/2018 105 98 - 107 mmol/L Final CO2 12/13/2018 22 22 - 30 mmol/L Final Calcium 12/13/2018 9.6 8.3 - 10.1 mg/dl Final Albumin 12/13/2018 4.3 3.5 - 5.0 g/dl Final BUN 12/13/2018 20* 7 - 17 mg/dl Final Creatinine 12/13/2018 0.5* 0.7 - 1.2 mg/dl Final Glucose 12/13/2018 148* 70 - 99 mg/dl Final Total Protein 12/13/2018 7.4 6.3 - 8.2 g/dl Final Total Bilirubin 12/13/2018 0.3 0.0 - 1.1 MG/DL Final AST 12/13/2018 46 15 - 46 U/L Final ALT 12/13/2018 62* 9 - 52 U/L Final Alkaline Phosphatase 12/13/2018 53 40 - 150 U/L Final eGFR 12/13/2018 >60 See Interpretation Below ml/min/1.73ml Sq Final Estimated GFR Interpretation: Above 60ml/min/1.73m2 = Normal Renal Function 30-59 ml/min/1.73m2 = Stage 3 Chronic Kidney Disease 15-29 ml/min/1.73m2 = Stage 4 Chronic Kidney Disease Less than 15 ml/min/1.73m2 = Stage 5 Chronic Kidney Disease The GFR value is calculated using the Modification of Diet in Renal Disease ( MDRD) Study Equation which can be found at: https://www.kidney.org/content/fbxl-gymgy-zthitqiu BUN/Creatinine Ratio 12/13/2018 40* 6 - 22 RATIO Final Anion Gap 12/13/2018 11 3 - 11 mmol/L Final A/G Ratio 12/13/2018 1.4 0.8 - 2.0 ratio Final Direct Ldl-Cholesterol 12/13/2018 100* <100 MG/DL Final Glycohemoglobin A1C 12/13/2018 8.0* <=5.6 % Final Normal*: <=5.6% Pre Diabetes* Risk: 5.7-6.4% Diabetes* Risk: >=6.5% Glycemic Goals for Adult Diabetes*: <7.0% *(Adult Ranges)[place] Diabetes Association, Standards of Medical Care in Diabetes, 2018 Immunizations: Immunization History Administered Date(s) Administered Adacel TdaP 01/07/2006 Hepatitis B Vaccine Adult 02/17/1993 Influenza (IM) Preservative Free 12/17/2017 Influenza Vaccine Whole 12/27/1990, 11/18/1991, 11/12/1992 PNEUMOCOCCAL POLYSACCHARIDE VACCINE 01/01/1996 TDAP Vaccine 04/10/2017 TETANUS & DIPHTHERIA TOXOID (OVER 7 YRS) 12/17/2015 dT Vaccine 10/09/1995 She plans to have her influenza vaccine next month. Diabetic complications: none Cardiovascular risk factors: diabetes mellitus and obesity Outpatient Medications as of 12/22/2018 Medication Sig Dispense Refill albuterol HFA (VENTOLIN) 108 (90 BASE) MCG/ACT Inhalation Aero Soln Take 2 Puffs by inhalation EVERY SIX HOURS NEEDED (wheezing). 2 Inhaler 1 Blood Glucose Monitoring Suppl (FREESTYLE LITE) Does not apply Device use as directed 1 Each 0 citalopram (CELEXA) 20 MG Oral Tab take 1 tablet by mouth once daily 90 Tab 3 Dulaglutide (TRULICITY) 1.5 MG/0.5ML Subcutaneous Solution Pen-injector Inject 1.5 mg beneaththe skin EVERY 7 DAYS. 2.24 mL 11 FARXIGA 10 MG Oral Tab take 1 tablet by mouth once daily 90 Tab 1 metFORMIN HCL 1000 MG Oral Tab take 1 tablet by mouth twice a day for DIABETES 60 Tab 11 Rosuvastatin Calcium (CRESTOR) 10 MG Oral Tab take 1 tablet by mouth once daily 90 Tab 2 Valsartan-hydroCHLOROthiazide 80-12.5 MG Oral Tab Take 1 Tab by mouth DAILY. 90 Tab 3 No current facility-administered medications on file as of 12/22/2018. Allergies Allergen Reactions Penicillin [Penicillin G Potassium] Hives Past Medical History: Diagnosis Date Ovarian Cyst 04/28/2006 Arthritis chronic fatigue 1990, in remission Asthma hospitalized 2013 x 4 days DIABETES 08/12/2004 dx age 29 Essential hypertension, benign 05/26/2014 History of breast surgery 1990 reduction Hypertension 08/20/2004 Meningitis viral 11/1989 Pneumonia 02/1990 hospitalized for one week Past Surgical History: Procedure Laterality Date BIOPSY, BREAST INCISION PLASTIC SURGERY: BREAST AUGMENTATION [place] REMOVE TONSILS/ADENOIDS,<12 Y/O [place] VAG HYST, W/VAGINECTOMY severe cysts TONSILLECTOMY 1985 UNLISTED PROCEDURE,MUSCULOSKELE 01/22/2017 left ulna shortening, Dr Noyola Family History Problem Relation Age of Onset Cancer Sister 41 BREAST Allergic Rhinitis Sister Breast Cancer Sister Hypertension Brother Cancer Mother LUNG Alcohol/Drug Mother Cancer Father STOMACHE No Known Problems Brother Cancer Paternal Grandmother breast cancer Breast Cancer Paternal Grandmother Cancer Maternal Grandmother brain cancer No Known Problems Brother No Known Problems Brother Diabetes Sister Asthma Sister Social History Tobacco Use Smoking status: Never Smoker Smokeless tobacco: Never Used Substance Use Topics Alcohol use: Yes Alcohol/week: 0.0 standard drinks Comment: rare Review Of Systems Gen: No fever, chills Skin: negative for rash Eyes: negative for blurred vision or vision changes Ears/Nose/Throat: no sinus pressure, no drainage Respiratory: Denies shortness of breath or cough Cardiovascular: negative for chest pain or pressure, no orthopnea Gastrointestinal: denies abdominal pain, anal pain, bowel changes, bloody or black stool OBJECTIVE: BP 110/76 (BP Location: Right arm, Patient Position: Sitting) | Pulse 93 | Ht 5' 1" (1.549 m) | Wt 170 lb 12.8 oz (77.5 kg) | SpO2 96% | BMI 32.27 kg/m Physical Examination: General appearance - alert, well appearing, and in no distress Mental status - alert, oriented to person, place, and time, normal mood, behavior, speech, dress, motor activity, and thought processes Eyes - pupils equal, sclera anicteric Neck - supple, no cervical or supraclavicular adenopathy, carotids upstroke normal bilaterally, no bruits, thyroid exam: thyroid is normal in size without nodules or tenderness, no neck masses palpated. Chest/Lungs - clear to auscultation, no wheezes, rales or rhonchi, symmetric air entry, good aeration Heart - normal rate, regular rhythm, normal S1, S2, no murmurs, rubs, clicks or gallops Abdomen - soft, non tender on palpation, nondistended, no masses or hepatosplenomegaly, bowel soundsnormal, normal to percussion, no guarding or rebound. No costervertebral angle tenderness Neurological - alert, oriented, normal speech, no gross focal findings or movement disorder noted Extremities - dorsalis pedis pulses normal, no pedal edema, no clubbing or cyanosis ASSESSMENT/PLAN: ICD-9-CM ICD-10-CM 1. Type 2 diabetes mellitus without complication, without long-term current use of insulin (HCC) 250.00 E11.9 Glucose Blood In Vitro Strip GLYCOHEMOGLOBIN A1C CBC NO DIFFERENTIAL 2. Essential hypertension, benign 401.1 I10 3. Mild intermittent asthma without complication 493.90 J45.20 CBC NO DIFFERENTIAL Type 2 diabetes mellitus without complication, without long-term current use of insulin ([facility]) Improving but A1C up 0.2 this visit, not yet at goal of under 7.0 Continue current medications, get back to diet and exercise. She just returned from a summer of travel Essential hypertension, benign Controlled on current medications. Hyperlipidemia LDL goal is under 70 Asthma is well controlled Rx: LEOBARDO? Yes, ARB Statin? Yes Metformin? Yes Reviewed concepts of diabetes self-management stressing the primary role of the patient in monitoring and maintaining control of Diabetes. Recommended diet, exercise, and weight loss. Follow up in 2 months with an early A1C. If still high, then she will consider resuming glimepiride. A Prior note template used and updated where appropriate for this visit.' Patient Instructions Please continue current medications, Work in diet and exercise. Repeat an A1c In 3 months. Our goal is under 7.0 Return in early February for pre-op exam if required by Dr Barragan prior to your shoulder surgery. DIET AND EXERCISE: Exercise is recommended 150 minutes weekly: 30 minutes five days a week of moderate exercise such as walking. In addition is it recommended you have two days weekly of working all your major muscle groups (arms, legs) such as with weight lifting or other exercise. I recommend a well balanced healthy diet, portion control, drink plenty of fluids. The Mediterranean diet is an excellent diet. Be sure to get adequate sleep at night, 8 hours. Author: Nely Purvis MD 12/22/2018 11:06 documented in this encounter Plan of Treatment Date Type Specialty Care Team Description 02/21/2019 Office Visit Family Practice Nely Purvis MD [address] [place] [address] [phone] Name Type Priority Associated Diagnoses Order Schedule GLYCOHEMOGLOBIN A1C Lab Routine Type 2 diabetes mellitus Expected: 2019 without complication, (Approximate), Expires: without long-term current 12/23/2019 use of insulin (HCC) CBC NO DIFFERENTIAL Lab Routine Type 2 diabetes mellitus Expected: 2019 without complication, (Approximate), Expires: without long-term current 12/23/2019 use of insulin (HCC) Mild intermittent asthma without complication Health Maintenance Due Date Last Done Comments ZOSTER IMMUNIZATION SERIES 07/31/2009 (1 of 2) HEMOGLOBIN A1C 03/15/2019 12/13/2018, 08/04/2018, 05/05/2018, Additional history exists Diabetic Eye Exam 04/05/2019 04/05/2018, 04/05/2018, 03/19/2017, Additional history exists DEPRESSION SCREENING 05/14/2019 05/13/2018 LIPID DISORDER SCREENING 12/14/2019 12/13/2018, 05/05/2018, 04/13/2018, Additional history exists FOOT EXAM 12/23/2019 12/22/2018, 12/22/2018, 12/22/2018, Additional history exists COLONOSCOPY SCREENING 05/28/2021 05/29/2011, 05/29/2011 (Previously completed) PNEUMOCOCCAL 0-64 YRS Completed 01/01/1996 HPV IMMUNIZATION SERIES Aged Out No longer eligible based on patient's age to complete this topic MENINGOCOCCAL VACCINE IMM Aged Out No longer eligible based on patient's age to complete this topic documented as of this encounter Goals Goal Patient Goal Associated Recent Patient-Stated? Author Type Problems Progress Blood Pressure Blood Pressure Essential 110/76 No Cornelia, < 140/90 hypertension, (12/22/2018 Yovanny, benign 10:10 AM EST) Note: Hypertension Care Plan Based on [...] Educational Resources. record my blood pressure results. [facility] is safe and secure way for you [...] Educational Resources: National Heart, Lung, & Blood [place] http://nhlbi.nih.gov/hbp/index.html The DASH Diet Eating Plan http://www.nhlbi.nih.gov/health/health-topics/ topics/dash/ Academy of Nutrition & DIetetics http://eatright.org National Smoking Cessation Site http://smokefree.gov Blood Pressure < Blood Pressure 110/76 (12/22/2018 No Nely Purvis 140/90 10:10 AM ESTSonido Baker MD Note: This is an [...] Diabetes Type 2 diabetes 8.0 (12/13/2018 No Cornelia, mellitus without 9:13 AM EDT) MD Yovanny [...] my blood sugar results (including dextrose sticks). [facility] is safe and secure way for you [...] A1c < 7.0 Diabetes 8.0 (12/13/2018 9:13 Nely Navarro AM, MD Note: This is an individualized treatment (diabetes control, HgbA1C) goal for Keily Maldonado: Displayed above is your progress towards your HgbA1C goal. Your goal is shown above (on the left); your most recent HgbA1C is shown on the right. Note that lower numbers are better. Weight loss vs. 18 Lifestyle 13.2 (12/22/2018 10:10 AM Nely Navarro mo max (lbs) >= 10 EST) Note: This is an individualized lifestyle goal for Keily Maldonado: Your body mass index (BMI) is more than 30. You should lose weight. A reasonable starting goal is to lose 10 pounds. Displayed above is how many pounds you have lost thus far towards your 10 pound weight loss goal. Keep immunizations current Lifestyle Nely Navarro MD Note: This is an individualized lifestyle [...] filedocumented in this encounter Visit Diagnoses Diagnosis Type 2 diabetes mellitus without complication, without long-term current use of insulin (HCC) - Primary Essential hypertension, benign Mild intermittent asthma without complication Unspecified asthma documented in this encounter Insurance Payer Benefit Plan / Subscriber ID Effective Dates Phone Address Type Group [employer] xxxxxxxxxxxx 2016-Present [employer] (Home) [place], [place] [phone] (Work) documented as of this encounter
[2019-02-07 14:01] VITALS: BP 107/63
--- NOTE | 2019-02-07 14:14 | UC ---
Throat Pain/Nasal Phuc HPI - HPI Summary HPI Summary: 58-year-old female comes in with a chief complaint of upper respiratory tract infection symptoms for 3 weeks. She's got green rhinorrhea and sputum. She has sinus pressure and Chest congestion. Been using her albuterol inhaler which does help some with breathing. - History of Current Complaint Chief Complaint: UCGeneralIllness Stated Complaint: CONGESTED Time Seen by Provider: 02/07/19 14:03 Hx Last Menstrual Period: 1995 Pain Intensity: 8 - Allergies/Home Medications Allergies/Adverse Reactions: Allergies Allergy/AdvReac Type Severity Reaction Status Date / Time amoxicillin Allergy Severe Anaphylatic Verified 11/04/18 15:39 Shock Penicillins Allergy Severe Anaphylatic Verified 11/04/18 15:39 Shock ampicillin Allergy Anaphylatic Verified 02/07/19 13:52 Shock PMH/Surg Hx/FS Hx/Imm Hx Previously Healthy: Yes Endocrine History: Diabetes, Dyslipidemia Cardiovascular History: Hypertension Respiratory History: Asthma - Surgical History Surgical History: Yes Surgery Procedure, Year, and Place[place] [facility] [place]SI[place] (MULTIPLE);. BRE[place]ONSTRUCT[place] [facility] [place]. [place] 1980;. [facility] 2007;. [place] [facility] [place]. Lt [facility] - [facility] - [facility]ATE - Family History Known Family History: Positive: Non-Contributory - Social History Alcohol Use: Rare Substance Use Type: None Smoking Status (MU): Never Smoked Tobacco Have You Smoked in the Last Year: No - Immunization History Most Recent Influenza Vaccination: Fall 2012 Most Recent Tetanus Shot: within last five years Most Recent Pneumonia Vaccination: unsure Review of Systems All Other Systems Reviewed And Are Negative: Yes Constitutional: Positive: Other - see hpi Skin: Positive: Negative Eyes: Positive: Negative ENT: Positive: Nasal Discharge, Sinus Congestion, Sinus Pain/Tenderness Respiratory: Positive: Cough, Other - see hpi Cardiovascular: Positive: Negative Gastrointestinal: Positive: Negative Motor: Positive: Negative Neurovascular: Positive: Negative Musculoskeletal: Positive: Negative Neurological: Positive: Negative Psychological: Positive: Negative Is Patient Immunocompromised?: No Physical Exam Triage Information Reviewed: Yes Appearance: No Pain Distress, Well-Nourished, Ill-Appearing - mild Vital Signs: Initial Vital Signs Temp 99.2 F 02/07/19 13:55 Pulse 95 02/07/19 13:55 Resp 18 02/07/19 13:55 BP 107/63 02/07/19 13:55 Pulse Ox 97 02/07/19 13:55 Vital Signs Reviewed: Yes Eye Exam: Normal Eyes: Positive: Conjunctiva Clear ENT: Positive: Pharyngeal erythema, Nasal congestion, Nasal drainage, TMs normal Neck: Positive: Supple Respiratory: Positive: Lungs clear, Normal breath sounds, No respiratory distress Cardiovascular: Positive: RRR Musculoskeletal: Positive: Strength Intact, ROM Intact Neurological: Positive: Alert Psychological: Positive: Age Appropriate Behavior Skin Exam: Normal Throat Pain/Nasal Course/Dx - Differential Dx/Diagnosis Provider Diagnosis: Sinusitis, Bronchitis Discharge ED - Sign-Out/Discharge Documenting (check all that apply): Patient Departure All imaging exams completed and their final reports reviewed: No Studies - Discharge Plan Condition: Stable Disposition: HOME Prescriptions: DOXYcycline CAP(*) [DOXYcycline 100MG CAP(*)] 100 mg PO BID #20 cap Patient Education Materials: Sinusitis (ED), Acute Bronchitis (ED) Referrals: Nely Purvis MD [Primary Care Provider] - Additional Instructions: FOLLOW UP WITH YOUR DOCTOR IF NOT COMPLETELY IMPROVED. GET REEVALUATED SOONER IF NOT IMPROVED OR WORSE OR ANY QUESTIONS OR CONCERNS. - Billing Disposition and Condition Condition: STABLE Disposition: Home
== END 2019-02-07 14:21 | disposition home or self-care (01) ==
LOC: UCEAST 13:12
DX: J32.9 Chronic sinusitis, unspecified (principal); J40 Bronchitis, not specified as acute or chronic; E11.9 Type 2 diabetes mellitus without complications; I10 Essential (primary) hypertension; J45.909 Unspecified asthma, uncomplicated; Z88.0 Allergy status to penicillin; Z79.899 Other long term (current) drug therapy
CPT/HCPCS: 99212; G0463

== ENCOUNTER 2019-02-28 07:49 | Day surgery (SDC) | payer BC ==
[~2019-02-28 07:49] MED LIST changes: -Buffered Lidocaine 0.9% SYRIN* 5 ML/SYR SYRINGE INTRADERM ONE; +Buffered Lidocaine 1% SYRIN* 1 ML/SYRINGE INTRADERM ONE; +DiMENhydriNATE IV* 50 MG/ML VIAL IV PUSH ONE; +DiMENhydriNATE IV* 50 MG/ML VIAL ONE; +Famotidine IV* 10 MG/ML 2 ML (20 mg) IV ONE; +Famotidine IV* 10 MG/ML 2 ML (20 mg) ONE; -Famotidine TAB* 20 MG PO ONE; +HYDROmorphone INJ1* 1 MG/ML SYRINGE IV PRN; +Lactated Ringers 1000 ML Bag* 1,000 ML IV SCH; +Naloxone* 0.4 MG/ML 1 ML VIAL IV PRN; -Naproxen TAB* 250 MG PO ONE; +Ondansetron ODT TAB* 4 MG ONE; +Ondansetron ODT TAB* 4 MG PO ONE; +PROCHLORPERAZINE INJ 5 MG/ML 2 ML VIAL IV PRN; -Scopolamine 1.5 mg* PATCH TRANSDERM ONE; -Sodium Citrate/Citric Acid* 15 ML UDC PO ONE; +fentaNYL* 50 MCG/ML 2 ML VIAL (100 MCG VIAL) IV PRN; +oxyCODONE TAB* 5 MG TAB PO PRN
[2019-02-28] MEDS ORDERED: fentaNYL* 50 MCG/ML 2 ML VIAL (100 MCG VIAL) ONE (08:18)
[2019-02-28] MEDS ORDERED: Midazolam* 1 MG/ML 5 ML VIAL (5 MG) ONE (08:18)
[2019-02-28] MEDS ORDERED: KETAMINE HCL* 50 MG/ML 10 ML VIAL ONE (08:18)
[2019-02-28] MEDS ORDERED: ceFAZolin 2 GM PREMIX in ORs 2 GM/50 ML BAG ONE (08:19)
[2019-02-28] MEDS ORDERED: Scopolamine 1.5 mg* PATCH ONE (08:42)
[2019-02-28] MEDS ORDERED: Acetaminophen IV 1GM/100ML * 100 ML ONE (09:35)
[2019-02-28] MEDS ORDERED: Ketorolac INJ* 30 MG/ML 1 ML VIAL ONE ×2 (09:35→09:38)
[2019-02-28] MEDS ORDERED: Propofol* 10 MG/ML 20 ML BTL ONE (09:35)
[2019-02-28] MEDS ORDERED: Lidocaine 2% PF * 5 ML VIAL ONE (09:35)
[2019-02-28] MEDS ORDERED: Phenylephrine 40 MCG/ML SYRINGE ONE (09:46)
[2019-02-28 12:00] VITALS: BP 116/87
--- NOTE | 2019-03-07 23:51 | OP ---
DATE OF OPERATION: 02/28/19 - [facility] DATE OF : 58 SURGEON: Marysol Yap MD ALARM INSTALLATION TECHNICIAN: MARLI Anglin. An fitness assistant was needed for the entirety of the case to help with positioning, retraction, and utilized throughout all portions of the case. ANESTHESIOLOGIST: Dr. Pena. ANESTHESIA: General with interscalene block. PRE-OP DIAGNOSES: 1. Right shoulder arthroscopy with partial-thickness tearing of the rotator cuff and bicipital tendinitis. 2. Acromioclavicular joint arthritis. POST-OP DIAGNOSES: 1. Right shoulder arthroscopy with partial-thickness tearing of the rotator cuff and bicipital tendinitis. 2. Acromioclavicular joint arthritis. OPERATIVE PROCEDURE: Right shoulder arthroscopy with: 1. Extensive glenohumeral debridement including debridement of anterior, posterior, and superior labrum. 2. Subacromial decompression with acromioplasty. 3. Rotator cuff repair using Regeneten patch. 4. Distal clavicle excision. INDICATIONS: Keily Maldonado is a 58-year-old female who presented with right shoulder pain that has persisted for several years. After extensive discussion of the risks and benefits of operative versus nonoperative treatment, she has elected to proceed with surgical treatment. Risks including, but are not limited to, bleeding; infection; damage to nerves, vessels, surrounding structures; wound not healing; persistent pain; need for surgery; scarring; stiffness; incomplete relief of symptoms, and risk of anesthesia. ESTIMATED BLOOD LOSS: Minimal. IMPLANT USED: Regeneten patch x1. COMPLICATIONS: None. DESCRIPTION OF PROCEDURE: The patient was greeted in the preoperative area by the attending surgeon. Correct extremity was marked and consent was confirmed. The patient was brought back to the operating suite. The patient underwent interscalene nerve block by the anesthesiologist after she was brought back to the operating suite, placed in supine position on the operating table, then underwent general anesthesia and LMA intubation, after which she was placed in the lateral decubitus position. All bony prominences were padded. She was secured with a pegboard. The right shoulder was then draped unsterilely with 10 pounds of traction. The right shoulder was prepped and draped in the usual sterile fashion beginning with chlorhexidine soap, scrub, and alcohol wipe, and a final prep with ChloraPrep. After appropriate surgical pause indicating side, site, procedure, and administration of antibiotics, a standard postero-lateral portal was made sharply with 11-blade. Scope was introduced into the joint and the joint was examined. There was abundant synovitis that was present in the joints. There was obvious high-grade partial-thickness tearing of the rotator cuff, supraspinatus, the head seemed to be somewhat subluxed though not thoroughly dislocated. She might have had some subtle instability, which explained some of her symptoms. There was partial-thickness tearing of the subscap as well, although maybe up to 10% of the tendon had partial tearing, but the reminder of the tendon was intact. The biceps had some mild synovitis, but the insertion was intact. The decision was made to keep that. The rotator cuff was then marked with an 0 PDS suture due to significant high-grade partial thickness tearing concerning for possible full- thickness tear. The anterior, posterior, and superior labrum had some mild fraying, which was debrided back. Again, the superior labrum insertion was okay, had some mild synovitis, possibly due to the rotator cuff tearing. The inferior recess was intact. There were grade 1 changes to the glenohumeral joint. The attention was then directed to the subacromial space. The scope was positioned in the subacromial space. The lateral portal was made in an outside-in fashion. There was an abundant thick bursa that was present. The synovitis was then removed using the shaver as well as electrocautery device to maintain hemostasis. The undersurface of the acromion was skeletonized using the electrocautery device. CA ligament was peeled back. There was a moderate anterolateral spur that was identified. This was debrided back using a 4-0 oval bur. The cuff was examined after the abundant bursa was removed and the cuff was intact on the subacromial side. The patient had AC joint arthritis; therefore, the AC joint was addressed next. The mumtaz was brought through the anterior portal. The distal 8 mm of the clavicle was then removed using the AC joint. There was a calcified meniscal fragment that was removed using biters and edwar as well. This actually took quite a bit time. She had a very stenotic AC joint. Once this was completed, final images were obtained. The clavicle was taken through range of motion and there was no evidence of further impingement. Attention was directed back to the rotator cuff. All loose debris and fluid were removed and the cuff at the bursal side was found to be intact. The decision was made to treat this with Regeneten patch. A size large patch was then brought to the field and then under direct arthroscopic visualization was positioned. The graft was then secured medially with tendon wisam, then laterally with PEEK wisam into the bone. This was well secured. Final images were obtained. The wounds were copiously irrigated with sterile saline. Portals were closed with 3-0 nylon. Sterile dressings were applied. A Cryo/ Cuff and a regular sling was applied. She was awoken from anesthesia and transferred to PACU in stable condition. POSTOPERATIVE PLAN: She will be nonweightbearing. She will be in a sling for a few days. She will be discharged on pain medications. She will start therapy on postop day #1. DVT prophylaxis was considered but deferred due to no previous personal or family history. I will see the patient back in 10 to 14 days. [id number]/[facility] #: [id number] [facility]ALTH[facility]ita
== END 2019-02-28 11:37 | disposition home or self-care (01) ==
LOC: OREAST 07:49
PROVIDERS: ATTEND Orthopaedic Surgery
DX: M75.111 Incomplete rotator cuff tear or rupture of right shoulder, not specified as traumatic (principal); M75.21 Bicipital tendinitis, right shoulder; M19.211 Secondary osteoarthritis, right shoulder; J45.909 Unspecified asthma, uncomplicated; I10 Essential (primary) hypertension; E78.5 Hyperlipidemia, unspecified; E11.9 Type 2 diabetes mellitus without complications; Z79.84 Long term (current) use of oral hypoglycemic drugs; Z88.0 Allergy status to penicillin; Z88.1 Allergy status to other antibiotic agents; G89.18 Other acute postprocedural pain
CPT/HCPCS: A9270-GY; C1713; J0690; J1240; J1885; J2250; J2704; J3010

== ENCOUNTER 2022-02-17 13:35 | Inpatient (IN) ==
[2022-02-17] MEDS ORDERED: Albuterol/Ipratropium NEB.SOL (2.5/0.5 MG) 3 ML NEB.SOLN INH ONE ×2 (14:12→17:40)
[2022-02-17] MEDS ORDERED: Lactated Ringers 1000 ml BAG 1,000 ML IV ONE (14:23)
[2022-02-17] MEDS ORDERED: Azithromycin 500 mg/250 ml NS 500 MG/250 ML BAG IVPB ONE (14:25)
[2022-02-17] MEDS ORDERED: Lactated Ringers SEPSIS* BAG 2,190 ML IV ONE (14:25)
[2022-02-17] MEDS ORDERED: cefTRIAXone 1 gm/50 mL D5W 1 GM/50 ML BAG IV ONE (14:25)
[2022-02-17 15:07] LABS: ABS Basophils 0.1 10^3/ul (0-0.2); ABS Eosinophils 0.3 10^3/ul (0-0.6); ABS Lymphocytes 1.1 10^3/ul (1.0-4.8); ABS Monocytes 0.5 10^3/ul (0-0.8); Eosinophil % 2.9 %; Hematocrit 49 % (35-47); Hemoglobin 16.2 g/dL (12.0-16.0); Lymphocyte % 9.8 %; Mean Corpuscular HGB Conc 33 g/dL (31-36); Mean Corpuscular Hemoglobin 29 pg (27-31); Mean Corpuscular Volume 87 fL (80-97); Mean Platelet Volume 7.3 fL (7.4-10.4); Platelet Count 246 10^3/uL (150-450); Red Blood Count 5.66 10^6 /uL (3.70-4.87); Red Cell Distribution Width 14 % (10-15)
[2022-02-17 15:19] LABS: Activated Partial Thrombo Time 35.6 seconds (26.0-38.0)
[2022-02-17 16:00] LABS: Albumin 4.9 g/dL (3.2-5.2); Potassium 4.3 mmol/L (3.5-5.0); Total Bilirubin 0.4 mg/dL (0.2-1.0)
[2022-02-17 16:06] LABS: Albumin/Globulin Ratio 1.5 (1-3); C Reactive Protein 14.71 mg/L (<8.01); Globulin 3.2 g/dL (2-4); Total Protein 8.1 g/dL (6.4-8.9)
[2022-02-17] MEDS ORDERED: Iodixanol (CONTRAST) 320 MG/ML 100 ML SDV IV ONE (16:29)
[2022-02-17] MEDS ORDERED: methylPREDNISolone SOD SUCC 125 mg 2 ML VIAL IV ONE (17:31)
[2022-02-17] MEDS ORDERED: Enoxaparin 40 MG/0.4 ML SYR SUBCUT SCH (20:00)
[2022-02-17] MEDS ORDERED: Albuterol HFA INHALER 8 gm MDI INH PRN (22:47)
[2022-02-17] MEDS ORDERED: Dextrose 50% Syringe 50 ml 25 GM/50 ML SYRINGE IV PUSH PRN (22:48)
[2022-02-18] MEDS: Mometasone/Formoter 200/5 MDI INH SCH ×2 (00:51→08:55)
[2022-02-18 06:35] LABS: HDL Cholesterol 56.1 mg/dL
[2022-02-18 06:52] LABS: ABS Lymphocytes 0.9 10^3/ul (1.0-4.8); ABS Monocytes 0.2 10^3/ul (0-0.8); ABS Neutrophils 9.1 10^3/ul (1.5-7.7); Hematocrit 43 % (35-47); Hemoglobin 14.1 g/dL (12.0-16.0); Lymphocyte % 8.5 %; Mean Corpuscular HGB Conc 33 g/dL (31-36); Mean Corpuscular Hemoglobin 28 pg (27-31); Mean Corpuscular Volume 86 fL (80-97); Mean Platelet Volume 7.7 fL (7.4-10.4); Platelet Count 237 10^3/uL (150-450); Red Cell Distribution Width 14 % (10-15); White Blood Count 10.2 10^3/uL (3.5-10.8)
[2022-02-18 07:01] LABS: Magnesium 2.1 mg/dL (1.9-2.7)
[2022-02-18 07:06] LABS: C Reactive Protein 45.96 mg/L (<8.01)
[2022-02-18] MEDS ORDERED: Glatiramer(NF) 20 MG/ML 1 ML SYRINGE SUBCUT SCH (09:00)
[2022-02-18 11:08] VITALS: BP 121/69
== END 2022-02-18 16:25 | disposition home or self-care (01) | DRG 139 ==
LOC: ED 13:35 → SUATTDRO 19:28 → EDHOLD 19:28 → MED 21:20
PROVIDERS: ADMIT Internal Medicine; ATTEND Internal Medicine